=== PATIENT | female | born 1965 | race Hispanic/Latino ===

== ENCOUNTER 2016-06-29 03:52 | Emergency (ER) | payer MEDICAID ==
[2016-06-29 03:52] VITALS: BMI 31.1
[2016-06-29] MEDS ORDERED: Sodium Chloride 0.9% 1,000 ML IV ONE (04:36)
--- NOTE | 2016-06-29 04:37 | C.PDOC ---
History Of Present Illness <Maida Díaz - Last Filed: 06/29/16 06:50> <Nicolas Quinones - Last Filed: 06/29/16 09:17> 51 y/o female c/o upper abdominal pain, nausea and several episodes of vomiting that woke her from sleep about an hour ago. pt denies fever, chills, back pain, urinary symptoms, diarrhea. pt took nothing for pain., pt sts she ate a hamburger last night. (Maida Díaz) <Maida Díaz - Last Filed: 06/29/16 06:50> <Nicolas Quinones - Last Filed: 06/29/16 09:17> Time Seen by Provider: 06/29/16 04:22 Chief Complaint (Nursing): Abdominal Pain Past Medical History Reviewed: Historical Data, Nursing Documentation, Vital Signs - Medical History PMH: Asthma (DOES NOT TAKE ANY MEDICATIONS AT THIS TIME) Denies: Alzheimer's Disease, Anemia, Anxiety, Arthritis, Bipolar Disorder, Bronchitis, Cardia Arrhythmia, CHF, Colonic Polyps, COPD, Crohn's Disease, Dementia, Depression, Diverticulitis, Emphysema, Fibromyalgia, Fractures, Gastritis, Gall Bladder Disease, HIV, HTN, Hypercholesterolemia, Hyperthyroidism , Hypothyroidism, Kidney Stones, Migraine, Mitral Valve Prolapse, Multiple Sclerosis, Osteoporosis, Pancreatitis, Paranoia, Parkinson's Disease, Peripheral Edema, Pneumonia, Post Traumatic Stress Disorder, Pulmonary Embolism , Chronic Kidney Disease, Rheumatoid Arthritis, Schizophrenia, Seizures, Sickle Cell Disease, Sexually Transmitted Disease, Sleep Apnea, TIA Surgical History: No Surg Hx Family History: States: Unknown Family Hx - Social History Hx Tobacco Use: No Hx Alcohol Use: Yes Hx Substance Use: No - Immunization History Hx Tetanus Toxoid Vaccination: No Hx Influenza Vaccination: No Hx Pneumococcal Vaccination: No <Maida Díaz - Last Filed: 06/29/16 06:50> Vital Signs: Last Vital Signs Temp 97.8 F 06/29/16 09:07 Pulse 79 06/29/16 09:07 Resp 16 06/29/16 09:07 BP 106/73 06/29/16 09:07 Pulse Ox 97 06/29/16 09:07 Review Of Systems Constitutional: Negative for: Fever, Chills Cardiovascular: Negative for: Chest Pain, Palpitations Respiratory: Negative for: Cough, Shortness of Breath Gastrointestinal: Positive for: Nausea, Vomiting, Abdominal Pain. Negative for : Diarrhea, Constipation Genitourinary: Negative for: Dysuria, Frequency Musculoskeletal: Negative for: Neck Pain, Back Pain Skin: Negative for: Rash Neurological: Negative for: Weakness, Numbness <Maida Díaz - Last Filed: 06/29/16 06:50> Physical Exam - Physical Exam Appears: Non-toxic, Other (appears uncomfortable) Skin: Normal Color, Warm, Dry Head: Atraumatic, Normacephalic Oral Mucosa: Dry Neck: Normal, Normal ROM Chest: Symmetrical, No Deformity, No Tenderness Cardiovascular: Rhythm Regular, No Murmur Respiratory: Normal Breath Sounds, No Accessory Muscle Use, No Rales, No Rhonchi , No Wheezing Gastrointestinal/Abdominal: Bowel Sounds, Soft, Tenderness (right upper quadrant and epigastric area), No Guarding, No Rebound Extremity: Normal ROM Neurological/Psych: Oriented x3, Normal Speech, Normal Motor, Normal Sensation <Maida Díaz - Last Filed: 06/29/16 06:50> ED Course And Treatment - Laboratory Results Result Diagrams: 06/29/16 05:00 06/29/16 05:00 ECG: Interpreted By Me, Viewed By Me ECG Rhythm: Sinus Rhythm ECG Interpretation: Normal Interpretation Of ECG: nsr, no st-t changes 76 Rate From EC O2 Sat by Pulse Oximetry: 99 <Maida Díaz - Last Filed: 06/29/16 06:50> - Laboratory Results Result Diagrams: 06/29/16 05:00 06/29/16 05:00 Lab Interpretation: Abnormal (mild leukocytosis, ASA 149, alt 80, bili's nl) Urine POC: Negative - Other Rad abd us X-Ray: Read By Radiologist (Osorio Justin) Interpretation: IMPRESSION: Mild increased echogenicity of the liver suggestive of mild fatty infiltration. Small 3 millimeter echogenic focus in the gallbladder may represent polyp versus nonshadowing gallstone versus cholesterol crystal. No ultrasound evidence of acute cholecystitis. Slightly increased echogenicity of the pancreas. Mild fullness in the collecting system versus small parapelvic left renal cyst. abd x 2 X-Ray: Interpreted by Me (+FOS) Reevaluation Time: 08:48 Reassessment Condition: Improved <Nicolas Quinones - Last Filed: 06/29/16 09:17> Medical Decision Making <Maida Díaz - Last Filed: 06/29/16 06:50> <Nicolas Quinones - Last Filed: 06/29/16 09:17> Medical Decision Makin51 y/o female with upper abdominal pain and vomiting, consider pancreatitis. gastritis, cholecycistitis/lithiasis. get labs/ ivf /analgesics re-assess, 557 am pt with less pain, nausea resolved. await rest of labs., pepcid ordered. (Maida Díaz) acute vomiting of ? etiology, normal GB, + constipation. (Nicolas Quinones) Disposition - Disposition Disposition Time: 06:55 <Maida Díaz - Last Filed: 06/29/16 06:50> Doctor Will See Patient In The: Office Counseled Patient/Family Regarding: Studies Performed, Diagnosis <Nicolas Quinones - Last Filed: 06/29/16 09:17> - Disposition Referrals: Non [facility] Provider, [Primary Care Provider] - Disposition: HOME/ ROUTINE Condition: GOOD Additional Instructions: drink a laxative (mag citrate) and re-evaluate your abdominal discomfort after using the bathroom 2-3 times Stool softners daily to help prevent constipation. your abdominal ultrasound was normal Instructions: Constipation (ED), Acute Nausea and Vomiting (ED) - Clinical Impression Clinical Impression: Abdominal pain, Vomiting Physician Patient Turnover Patient Signed Over To: Nicolas Quinones Handoff Comments: f/u abdominal us and re-assess, dispo accordingly <Maida Díaz - Last Filed: 06/29/16 06:50>
[2016-06-29 05:04] LABS: BASO # 0.1 K/uL (0.0-0.2); BASO % 0.6 % (0.0-2.0); EOS # 0.1 K/uL (0.0-0.7); EOS % 0.8 % (0.0-4.0); LYMPH # 1.7 K/uL (1.0-4.3); LYMPH % 14.3 % (20.0-40.0); MEAN CELL VOLUME 89.2 fL (81.0-99.0); MEAN CORPUSCULAR HEMOGLOBIN 29.5 pg (27.0-31.0); MEAN CORPUSCULAR HGB CONC 33.1 g/dL (33.0-37.0); MEAN PLATELET VOLUME 9.5 fL (7.2-11.7); MONO # 0.8 K/uL (0.0-0.8); RED CELL DISTRIBUTION WIDTH 13.9 % (11.5-14.5); WHITE BLOOD COUNT 11.9 K/uL (4.8-10.8)
[2016-06-29] MEDS ORDERED: Sodium Chloride 0.9% 1,000 ML ONE (05:04)
[2016-06-29 05:15] LABS: CHLORIDE 101 mmol/L (98-107); SODIUM 138 mmol/L (132-148)
[2016-06-29 06:13] LABS: ALB/GLOB RATIO 1.2 (1.0-2.1); ALKALINE PHOSPHATASE 68 U/L (38-126); ALT/SGPT 80 U/L (9-52); AST/SGOT 149 U/L (14-36); BILIRUBIN,TOTAL 0.6 mg/dL (0.2-1.3); BLOOD UREA NITROGEN 19 mg/dL (7-17); CALCIUM 8.8 mg/dl (8.6-10.4); CARBON DIOXIDE 24 mmol/L (22-30); GFR AFRICAN-AMERICAN > 60; GLUCOSE,RANDOM 118 mg/dL (65-105); TOTAL PROTEIN 7.4 g/dL (6.3-8.3)
[2016-06-29 09:08] VITALS: BP 106/73; PULSE 79; RESP 16; TEMP 97.8; O2SAT 97
--- NOTE | 2016-06-29 09:09 | US ---
HISTORY: ruq pain and vomiting COMPARISON: None. TECHNIQUE: Sonographic evaluation of the abdomen. FINDINGS: LIVER: Measures 14.8 cm. Slightly increased echogenicity of the liver parenchyma. No mass. No intrahepatic bile duct dilatation. GALLBLADDER: There is a small echogenic focus in the gallbladder measures 3.6 millimeter may represent polyp or nonshadowing small stone or cholesterol crystal. No evidence of significant gallbladder wall thickening or pericholecystic fluid. COMMON BILE DUCT: Measures 4.6 mm. No stones. No dilatation. PANCREAS: Mild diffuse increased echogenicity of the pancreas is noted. . No mass. No ductal dilatation. RIGHT KIDNEY: Measures 9.7 x 5 x 4.5cm. Normal echogenicity. No calculus, mass, or hydronephrosis. LEFT KIDNEY: Measures 11.3 x 5.6 x 5.6cm. Normal echogenicity. No calculus, mass, or hydronephrosis. SPLEEN: Normal in size and contour. No mass. AORTA: No aneurysmal dilatation. IVC: Unremarkable. OTHER FINDINGS: None. IMPRESSION: Mild increased echogenicity of the liver suggestive of mild fatty infiltration. Small 3 millimeter echogenic focus in the gallbladder may represent polyp versus nonshadowing gallstone versus cholesterol crystal. No ultrasound evidence of acute cholecystitis. Slightly increased echogenicity of the pancreas. Mild fullness in the collecting system versus small parapelvic left renal cyst.
[2016-06-29 09:21] LABS: RBC URINE 1 /hpf (0-3); URINE BILIRUBIN NEGATIVE (NEGATIVE); URINE BLOOD NEGATIVE (NEGATIVE); URINE COLOR Yellow (YELLOW); URINE GLUCOSE (UA) NORMAL (Normal); URINE KETONE NEGATIVE (NEGATIVE); URINE LEUKOCYTE ESTERASE NEG Leu/uL (Negative); URINE PROTEIN NEGATIVE (NEGATIVE); URINE UROBILINOGEN NORMAL mg/dL (0.2-1.0); WBC URINE 1 /hpf (0-5)
--- NOTE | 2016-06-29 12:01 | RAD ---
HISTORY: epigastric COMPARISON: No prior. FINDINGS: BOWEL: Normal. No obstruction. No free air. BONES: Normal. OTHER FINDINGS: None. IMPRESSION: No evidence of obstruction. Moderate stool burden in the colon suggestive of constipation.
--- NOTE | 2016-06-29 14:06 | CARD ---
APPROVED REPORT EKG Measurement Heart [id number] CO [id number] <Conclusion> Normal sinus rhythm Normal ECG
== END 2016-06-29 09:09 | disposition home or self-care (01) ==
LOC: SUPCPDRO 03:52 → C.ER 03:52
DX: R10.11 Right upper quadrant pain (principal); R11.10 Vomiting, unspecified
CPT/HCPCS: 74020; 76700; 80053; 81001; 83690; 84703; 85025; 93005; 96361; 96374; 96375; 99285; J1885; J2405; J7040